=== PATIENT | female | born 1960 | race African-American/Black ===

== ENCOUNTER 2017-11-08 16:46 | Emergency (ER) | payer BC ==
[2017-11-08] MEDS ORDERED: ASPIRIN 81 MG TABLET, CHEWABLE PO ONE (17:15)
[2017-11-08] MEDS ORDERED: ACETAMINOPHEN 325 MG TABLET PO ONE (17:16)
--- NOTE | 2017-11-08 17:17 | ER Document Report ---
ED Medical Screen (RME) - General Chief Complaint: Chest Tightness Stated Complaint: TIGHTNESS IN CHEST/NUMBNESS/HEADACHE Time Seen by Provider: 11/08/17 17:09 Mode of Arrival: Ambulatory Information source: Patient Notes: This is a 56-year-old female with a history of hypertension who presents to the emergency room with mild chest pressure radiating into the left arm. Patient also states she has had a headache for today. She does have a history of mitral valve prolapse. She has got no known cardiac disease. She denies any allergies. Her only medicine is lisinopril-hydrochlorothiazide. Her physician is Dr. Harmon TRAVEL OUTSIDE OF THE [place] IN LAST 30 DAYS: No - Related Data Allergies/Adverse Reactions: No Known Allergies Allergy (Verified 11/08/17 17:10) Past Medical History - Social History Chew tobacco use (# tins/day): No Frequency of alcohol use: Occasional Drug Abuse: None Renal/ Medical History: Denies: Hx Peritoneal Dialysis Physical Exam - Vital signs Vitals: Temp Pulse Resp BP Pulse Ox 98.5 F 70 16 133/96 H 97 11/08/17 17:01 11/08/17 17:01 11/08/17 17:01 11/08/17 17:01 11/08/17 17:01 Course - Vital Signs Vital signs: Temp Pulse Resp BP Pulse Ox 98.5 F 70 16 133/96 H 97 11/08/17 17:01 11/08/17 17:01 11/08/17 17:01 11/08/17 17:01 11/08/17 17:01
--- NOTE | 2017-11-08 18:10 | RADIOLOGY REPORT (SQ) ---
EXAM DESCRIPTION: CHEST SINGLE VIEW COMPLETED DATE/TIME: 11/08/2017 5:58 pm REASON FOR STUDY: cp COMPARISON: None. EXAM PARAMETERS: NUMBER OF VIEWS: One view. TECHNIQUE: Single frontal radiographic view of the chest acquired. RADIATION DOSE: NA LIMITATIONS: None. FINDINGS: LUNGS AND PLEURA: No consolidation, masses or pneumothorax. Minimal linear subpleural sca rring in the left lung base. No pleural effusion. MEDIASTINUM AND HILAR STRUCTURES: No masses. Contour normal. HEART AND VASCULAR STRUCTURES: Heart normal in size. Normal vasculature. BONES: No acute findings. HARDWARE: None in the chest. OTHER: No other significant finding. IMPRESSION: No significant findings TECHNICAL DOCUMENTATION: JOB ID: [id number] [id number] 2010 [employer]- All Rights Reserved Reading location - IP/workstation name: [email or web address]
--- NOTE | 2017-11-08 18:18 | ER Document Report ---
ED Cardiac - General Mode of Arrival: Ambulatory Information source: Patient TRAVEL OUTSIDE OF THE [place] IN LAST 30 DAYS: No <REN MERRILL - Last Filed: 11/08/17 22:27> <MATEO THRASHER - Last Filed: 11/08/17 23:09> - General Chief Complaint: Chest Tightness Stated Complaint: TIGHTNESS IN CHEST/NUMBNESS/HEADACHE Time Seen by Provider: 11/08/17 17:09 Notes: 56 y.o female with HTN for which she takes Lisinopril-Hydrochlorothiazide presents to the ED with chest tightness radiating to her LUE and tingling to her bilateral hands of onset this morning after being awake and in sabianist for a little while. Pt also complains of a frontal MUNOZ prominently to her LT sided forehead and to the "tops of her eyeballs" which she describes as a pressure of similar onset. Pt reports that her CP is mainly to her LT sided chest and reaches laterally to her LT lateral ribs. She reports that earlier when she felt her MUNOZ and CP she also had an increased pressure going down her arms that lasted about 1 hour that she describes as someone "turning on a hose and pinching it shut". Pt states that while having sabianist she was having small burps and was hoping that her pain was due to gas. She took 4 81mg Aspirins at onset of sx. She denies any nausea, diaphoresis or SOB at onset of sx. Pt reports chest discomfort during her EKG. She reports that her pain is more evident when walking and has since relieved since resting here in the ED. Pt reports a Hx of mitral valve prolapse. She reports a PFHx of heart disease to her maternal grandmother with cardiomegally and CHF and father with a stroke and CAD with CABG when he was 74 years old. Pt reports a PSHx of terminal ileum and cecum resection for a blockage discovered when she was having an appendectomy. Her PCP is Dr. Harmon. (REN MERRILL) - Related Data Allergies/Adverse Reactions: No Known Allergies Allergy (Verified 11/08/17 17:10) Past Medical History - General Information source: Patient - Social History Smoking Status: Former Smoker Chew tobacco use (# tins/day): No Frequency of alcohol use: Occasional Drug Abuse: None Family History: CAD - In father with CABG at age 74 Patient has suicidal ideation: No Patient has homicidal ideation: No Renal/ Medical History: Denies: Hx Peritoneal Dialysis <REN MERRILL - Last Filed: 11/08/17 22:27> Review of Systems - Review of Systems Constitutional: No symptoms reported EENT: See HPI, Eye pain - "pressure" Cardiovascular: See HPI, Chest pain Respiratory: No symptoms reported Gastrointestinal: No symptoms reported Genitourinary: No symptoms reported Female Genitourinary: No symptoms reported Musculoskeletal: No symptoms reported Skin: No symptoms reported Hematologic/Lymphatic: No symptoms reported Neurological/Psychological: See HPI, Headaches, Tingling - bilateral hands -: Yes All other systems reviewed and negative <REN MERRILL - Last Filed: 11/08/17 22:27> Physical Exam <REN MERRILL - Last Filed: 11/08/17 22:27> <MATEO THRASHER - Last Filed: 11/08/17 23:09> - Vital signs Vitals: Temp Pulse Resp BP Pulse Ox 98.5 F 70 16 133/96 H 97 11/08/17 17:01 11/08/17 17:01 11/08/17 17:01 11/08/17 17:01 11/08/17 17:01 - Notes Notes: Physical Exam: General: Alert, appears well. HEENT: Normocephalic. Atraumatic. LT forehead somewhat tender to palpation. Lobes are equal bilaterally and did not feel firm. PERRL. Extraocular movements intact. Neck: Supple. Non-tender. Respiratory: No respiratory distress. Clear and equal breath sounds bilaterally. Cardiovascular: Regular rate and rhythm. No murmur. No chest wall tenderness. Abdominal: Normal Inspection. Non-tender. No distension. Normal Bowel Sounds. Back: Non-tender. No deformity or step off. Extremities: Moves all four extremities. Upper extremities: Normal inspection. No scapular or trapezius tenderness to palpation. Normal ROM. Lower extremities: Normal inspection. No edema. Normal ROM. Neurological: Normal cognition. AAOx3. Normal speech. Psychological: Normal affect. Normal Mood. Skin: Warm. Dry. Normal color. (REN MERRILL) Course - Laboratory Result Diagrams: 11/08/17 18:55 11/08/17 18:55 <REN MERRILL - Last Filed: 11/08/17 22:27> - Laboratory Result Diagrams: 11/08/17 18:55 11/08/17 18:55 - Diagnostic Test Radiology reviewed: Image reviewed, Reports reviewed - Chest x-ray is unremarkable. <MATEO THRASHER - Last Filed: 11/08/17 23:09> - Re-evaluation Re-evalutation: 11/08/17 23:06 At this time the patient is pain-free. She is feeling better. She still has a headache she states above her eyeballs and indicates her forehead. Her forehead muscles are actually a little tender to palpate and palpating this area does reproduce and worsen the headache. There is no temporal muscle or artery regional tenderness. He will be discharged with copy of her EKG and lab work to follow-up with her primary care provider tomorrow. She is on a blood pressure medication with a diuretic which would explain her potassium deficiency. She states she likes bananas so she is encouraged to eat all that she wants. (MATEO THRASHER) - Vital Signs Vital signs: Temp Pulse Resp BP Pulse Ox 98.5 F 70 15 137/102 H 98 11/08/17 17:01 11/08/17 17:01 11/08/17 21:37 11/08/17 22:01 11/08/17 22:01 - Laboratory Laboratory results interpreted by me: 11/08/17 11/08/17 18:55 18:55 RDW 14.7 H Plt Count 141 L Seg Neutrophils % 40.7 L Lymphocytes % 52.1 H Potassium 3.0 L* Discharge <REN MERRILL - Last Filed: 11/08/17 22:27> <MATEO THRASHER - Last Filed: 11/08/17 23:09> - Discharge Clinical Impression: Hypokalemia, Headache in front of head Chest pain Qualifiers: Chest pain type: unspecified Qualified Code(s): R07.9 - Chest pain, unspecified Condition: Stable Disposition: HOME, SELF-CARE Additional Instructions: Chest Pain of Unclear Cause The exact cause of your chest pain isn't clear. Fortunately, there is no evidence of a dangerous medical condition. Further testing may be required to find the source of the pain. Most often, we find that this pain is coming from the chest wall -- the muscles or rib joints in the chest. But chest pain can come from the lung and lung lining, the esophagus, the heart valves or heart lining, and even the stomach or gallbladder. Rest. Eat lightly until the pain is gone. We may prescribe medicine for pain and inflammation. You should call the physician immediately if the pain radiates to the shoulder, jaw or arms; if you start to run a fever or develop a cough; or if you develop shortness of breath, or other new or alarming symptoms. Take Tylenol and ibuprofen for your headache as needed. Increase potassium intake in your diet. Take copies of your lab work and EKG to follow-up with your primary care provider tomorrow. RETURN TO THE EMERGENCY ROOM IF ANY NEW OR WORSENING SYMPTOMS. Referrals: IZABELLA PLATA MD [Primary Care Provider] - 11/09/17 Scribe Attestation: 11/08/17 19:26 I personally performed the services described in the documentation, reviewed and edited the documentation which was dictated to the scribe in my presence, and it accurately records my words and actions. (MATEO THRASHER) Scribe Documentation - Scribe Written by Murray:: Murray Artis 11/08/17 182 acting as scribe for :: Fletcher <REN MERRILL - Last Filed: 11/08/17 22:27>
--- NOTE | 2017-11-08 18:30 | EKG REPORT ---
SEVERITY:- ABNORMAL ECG - SINUS RHYTHM LEFT ATRIAL ABNORMALITY : Confirmed by: Aleena Santos MD 08-Nov-2017 18:29:50
[2017-11-08 19:12] LABS: ABSOLUTE BASOPHILS # (AUTO) 0.1 10^3/uL (0.0-0.2); ABSOLUTE EOSINOPHILS # (AUTO) 0.2 10^3/uL (0.0-0.6); ABSOLUTE LYMPHOCYTES (AUTO) 3.2 10^3/uL (0.5-4.7); ABSOLUTE MONOCYTES (AUTO) 0.2 10^3/uL (0.1-1.4); ABSOLUTE NEUT (AUTO) 2.5 10^3/uL (1.7-8.2); EOSINOPHILS % (AUTO) 2.7 % (0-6); HEMATOCRIT 39.3 % (36.0-47.0); HEMOGLOBIN 13.2 g/dL (12.0-15.5); LYMPHOCYTES % (AUTO) 52.1 % (13-45); MEAN CORPUSCULAR HEMOGLOBIN 30.8 pg (27.0-33.4); MEAN CORPUSCULAR HGB CONC 33.6 g/dL (32.0-36.0); MEAN CORPUSCULAR VOLUME 92 fl (80-97); MONOCYTES % (AUTO) 3.5 % (3-13); RED BLOOD COUNT 4.29 10^6/uL (3.72-5.28); RED CELL DISTRIBUTION WIDTH 14.7 % (11.5-14.0); SEGMENTED NEUTROPHILS % (AUTO) 40.7 % (42-78); TOTAL CELLS COUNTED % (AUTO) 100 %; WHITE BLOOD COUNT 6.1 10^3/uL (4.0-10.5)
[2017-11-08 19:35] LABS: PLATELET COUNT 141 10^3/uL (150-450)
[2017-11-08 19:44] LABS: ALANINE AMINOTRANSFERASE 30 U/L (9-52); ALBUMIN 4.2 g/dL (3.5-5.0); ALKALINE PHOSPHATASE 63 U/L (38-126); ANION GAP 14 (5-19); ASPARTATE AMINO TRANSFERASE 36 U/L (14-36); BILIRUBIN,DIRECT 0.2 mg/dL (0.0-0.4); BILIRUBIN,TOTAL 0.7 mg/dL (0.2-1.3); BLOOD UREA NITROGEN 18 mg/dL (7-20); CALCIUM 9.8 mg/dL (8.4-10.2); CARBON DIOXIDE 26 mmol/L (22-30); CHLORIDE 105 mmol/L (98-107); CREATINE KINASE 95 U/L (30-135); GLUCOSE 84 mg/dL (75-110); SODIUM 144.7 mmol/L (137-145); TOTAL PROTEIN 7.8 g/dL (6.3-8.2)
[2017-11-08] MEDS ORDERED: POTASSIUM CHLORIDE 20 MEQ/15 ML UDCUP PO ONE (19:49)
[2017-11-08 19:54] LABS: CREATINE KINASE MB 0.75 ng/mL (<4.55)
[2017-11-08 19:59] LABS: TROPONIN I < 0.012 ng/mL
[2017-11-08] MEDS ORDERED: KETOROLAC TROMETHAMINE 60 MG/2 ML SDV IM ONE (21:39)
[2017-11-09 02:27] VITALS: BP 134/87
== END 2017-11-08 23:36 | disposition home or self-care (01) ==
LOC: ER 16:46
DX: R07.89 Other chest pain (principal); E87.6 Hypokalemia; I10 Essential (primary) hypertension; Z79.899 Other long term (current) drug therapy; R20.2 Paresthesia of skin; R51 Headache; Z82.49 Family history of ischemic heart disease and other diseases of the circulatory system; Z87.891 Personal history of nicotine dependence
CPT/HCPCS: 93005; 99285; 96372; 36415; 82553; 82550; 85025; 80053; 84484; 71045; 93010; J1885

== ENCOUNTER → 2020-05-04 | Outpatient (CLI) | payer BC ==
[2020-05-04 09:31] LABS: APPEARANCE,URINE CLEAR; BILIRUBIN,URINE NEGATIVE (NEGATIVE); COLOR,URINE YELLOW; GLUCOSE, URINE NEGATIVE (NEGATIVE); KETONES,URINE NEGATIVE (NEGATIVE); LEUKOCYTE ESTERASE,URINE TRACE (NEGATIVE); NITRITE,URINE NEGATIVE (NEGATIVE); PROTEIN,URINE 30 mg/dL (NEGATIVE); URINE SPECIFIC GRAVITY 1.023; UROBILINOGEN,URINE NEGATIVE mg/dL (<2.0)
[2020-05-04 09:46] LABS: CHOLESTEROL 149.43 mg/dL (0-200); TRIGLYCERIDES 79 mg/dL (<150)
[2020-05-04 09:57] LABS: DIRECT LDL 73 mg/dL (<100)
== END ==
LOC: OD 08:16
PROVIDERS: ATTEND Family Medicine
DX: I10 Essential (primary) hypertension (principal); Z13.220 Encounter for screening for lipoid disorders
CPT/HCPCS: 36415; 80061; 81001